=== PATIENT | female | born 1960 | race Caucasian/White ===

== ENCOUNTER 2016-06-29 14:29 | Emergency (ER) | payer BC ==
[~2016-06-29] VITALS: Ht 165.1 cm; Wt 93.9 kg
--- NOTE | ~2016-06-29 | EKG ---
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1960 Requested By: Sherif Cabrear Order Number: [id number] MD: Piero Fulton Measurements Intervals [place] Rate: 83 P: 41 UT: 145 QRS: 50 QRSD: 82 T: 48 QT: 376 QTc: 442 Interpretive Statements Normal sinus rhythm No significant abnormality Compared to ECG 04/19/2016 07:18:47 No significant change was found Electronically Signed On 06-30-2016 9:02:13 DIRECTOR CALL by Piero Fulton [email or web address] <ELECTRONICALLY SIGNED> By: Piero Fulton MD, [facility] 06/30/16 0902 [id number] 144 Piero Fulton MD, [facility] /EPI
[~2016-06-29 14:29] MED LIST changes: -BREO ELLIPTA 21 EACH IH; -ZPAK PO
[2016-06-29] MEDS ORDERED: BREO ELLIPTA 21 EACH IH (15:08)
[2016-06-29 15:22] LABS: ABSOLUTE NEUTROPHILS 4.6 thou/uL (1.4-8.2); BASOPHILS 1.1 % (0.0-2.0); EOSINOPHILS 1.6 % (0.0-3.0); HEMATOCRIT 38.5 % (37.0-47.0); HEMOGLOBIN 12.9 gm/dL (12.0-15.0); MCH 30.1 pg (26.0-34.0); MCHC 33.6 % (28.0-37.0); MCV 89.6 fL (80.0-100.0); MONOCYTES 7.2 % (1.0-8.0); PLATELET COUNT 334 thou/uL (150-400); POLYS 66.1 % (36.0-66.0); RBC 4.29 mil/uL (4.20-5.00); RDW 13.8 % (10.5-14.5)
[2016-06-29 15:26] LABS: MANUAL DIFF NO
[2016-06-29 15:29] LABS: ANION GAP 8 mmol/L (7-16); BUN 15 mg/dL (7-18); CALCIUM 8.8 mg/dL (8.5-10.1); CHLORIDE 103 mmol/L (98-107); CO2 27 mmol/L (21-32); CREATININE 1.1 mg/dL (0.6-1.3); GLUCOSE 88 mg/dL (70-99); POTASSIUM 3.6 mmol/L (3.5-5.1); SODIUM 138 mmol/L (136-145)
[2016-06-29 15:37] LABS: MAGNESIUM 1.9 mg/dL (1.8-2.4); TROPONIN-I < 0.04 ng/mL (<0.04-0.07)
[2016-06-29 16:51] LABS: URINE BILIRUBIN NEGATIVE (Negative); URINE BLOOD 2+ (Negative); URINE COLOR YELLOW; URINE GLUCOSE-RANDOM* NEGATIVE (Negative); URINE KETONES NEGATIVE (Negative); URINE LEUKOCYTES-REFLEX NEGATIVE (Negative); URINE PROTEIN (DIPSTICK) NEGATIVE (Negative); URINE SPECIFIC GRAVITY <= 1.005 (1.003-1.035); URINE UROBILINOGEN 0.2 E.U./dl (0.2-1.0)
[2016-06-29 17:05] LABS: SQUAMOUS 0-3 Few /LPF (0-3)
[2016-06-29 17:06] LABS: CASTS None Seen /LPF (None Seen)
[2016-06-29 17:07] LABS: URINE RBC 0-2 Rare /HPF (0-2); URINE WBC-REFLEX None Seen /HPF (0-5)
[2016-06-29] MEDS ORDERED: ZPAK PO (17:09)
[2016-06-29] MEDS ORDERED: PREDNISONE 20 M20 MG PO (17:09)
== END 2016-06-29 17:44 | disposition home or self-care (01) ==
LOC: ER 14:29
PROVIDERS: Physician Assistant
DX: J45.901 Unspecified asthma with (acute) exacerbation (principal); R07.89 Other chest pain; R06.02 Shortness of breath; K64.8 Other hemorrhoids; J45.909 Unspecified asthma, uncomplicated; Z87.442 Personal history of urinary calculi; Z86.711 Personal history of pulmonary embolism; Z88.0 Allergy status to penicillin; Z88.1 Allergy status to other antibiotic agents; Z88.2 Allergy status to sulfonamides

== ENCOUNTER → 2016-06-29 | Outpatient (CLI) | payer BC ==
[~2016-06-29] MED LIST: ACCUNEB SO1.25 MG/1 INH; ACETAMINOPHEN-120 ML PO; ALDACTONE25 MG PO; AMBIEN 5 MG TABL5 M1 PO; AMITRIPTYLINE H25 M2 PO; ANALPRAM HC 1%30 GM RECTAL; AZITHROMYCIN 2250 MG PO; BIRTH CONTROL; BREO ELLIPTA 21 EACH IH; CALTRATE-600 W1 EACH PO; CARDIZEM CD120 MG PO; CIPROFLOXACIN500 M3 OR; CLARITIN10 MG PO; DUONEB 2.5-0.5 M3 ML INH; LEXAPRO20 MG PO; LIPITOR 20 MG T20 M1 PO; MACROBID 100 M100 MG PO; MEDROLDOSEPACK PO; MUPIROCIN22 GM NASAL; NEXIUM40 MG PO; NORCO 5-325 TA1 EACH PO; PERCOCET 5-3251 EACH PO; PREDNISONE 10 M10 MG PO; PREDNISONE 20 M20 MG PO; PREDNISONE50 MG PO; SINGULAIR 10 MG10 M1 PO; TOPROL XL25 MG PO; VENTOLIN HFA 1818 GM INH; VERAPAMIL ER100 MG PO; XARELTO15 MG PO; XARELTO20 MG PO; XOPENEX 0.63 MG/3 M1 INH; ZPAK PO; [UNRECOGNIZED DRUG - OTHER] PO; [UNRECOGNIZED DRUG - OTHER] PO
== END ==
LOC: RAD 14:01
DX: R00.2 Palpitations (principal)

== ENCOUNTER 2016-11-28 14:46 | Emergency (ER) | payer BC ==
[~2016-11-28] VITALS: Ht 165.1 cm; Wt 89.4 kg
--- NOTE | ~2016-11-28 | EKG ---
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
[~2016-11-28 14:46] MED LIST changes: +BREO ELLIPTA 21 EACH IH; +ZPAK PO
[2016-11-28] MEDS ORDERED: VERAPAMIL ER120 M1 PO (14:58)
[2016-11-28] MEDS ORDERED: ZOLPIDEM TARTRA10 MG PO (14:58)
[2016-11-28] MEDS ORDERED: XARELTO20 MG PO (15:06)
[2016-11-28] MEDS ORDERED: ALDACTONE25 MG PO (15:07)
[2016-11-28 16:14] LABS: ABSOLUTE NEUTROPHILS 5.4 thou/uL (1.4-8.2); BASOPHILS 0.9 % (0.0-2.0); EOSINOPHILS 1.1 % (0.0-3.0); HEMATOCRIT 40.6 % (37.0-47.0); HEMOGLOBIN 13.6 gm/dL (12.0-15.0); LYMPHOCYTES 30.8 % (24.0-44.0); MCH 30.4 pg (26.0-34.0); MCHC 33.6 g/dL (28.0-37.0); MCV 90.6 fL (80.0-100.0); MONOCYTES 7.5 % (1.0-8.0); PLATELET COUNT 323 thou/uL (150-400); POLYS 59.7 % (36.0-66.0); RBC 4.48 mil/uL (4.20-5.00); RDW 15.4 % (10.5-14.5); WBC 9.1 thou/uL (4.0-11.0)
[2016-11-28 16:15] LABS: MANUAL DIFF NO
[2016-11-28 16:27] LABS: ANION GAP 7 mmol/L (7-16); BUN 14 mg/dL (7-18); CHLORIDE 107 mmol/L (98-107); CO2 26 mmol/L (21-32); CREATININE 0.9 mg/dL (0.6-1.0); GLUCOSE 87 mg/dL (74-106); SODIUM 140 mmol/L (136-145)
[2016-11-28] MEDS ORDERED: PREDNISONE 20 M20 MG PO (16:33)
[2016-11-28 16:36] LABS: TROPONIN-I < 0.04 ng/mL (<0.04-0.07)
== END 2016-11-28 16:35 ==
LOC: ER 14:46
PROVIDERS: Emergency Medicine
DX: J45.21 Mild intermittent asthma with (acute) exacerbation (principal); Z87.442 Personal history of urinary calculi; Z88.0 Allergy status to penicillin; Z88.1 Allergy status to other antibiotic agents; Z88.2 Allergy status to sulfonamides